=== PATIENT | female | born 1945 | race Caucasian/White ===

== ENCOUNTER 2017-09-28 19:18 | Emergency (ER) | payer MEDICARE ==
[~2017-09-28] VITALS: Ht 160 cm; Wt 87.1 kg
[2017-09-28] MEDS ORDERED: HYDCHL50 PO (21:06)
[2017-09-28] MEDS ORDERED: POTCHL20ER PO (21:07)
[2017-09-28] MEDS ORDERED: Cymbalta20 MG (21:07)
[2017-09-28 22:10] LABS: Chloride (POC) 103 mmol/L (98-108); Creatinine (POC) 0.7 mg/dL (0.6-1.0); Glucose (ISTAT POC) 114 mg/dL (70-99); Hemoglobin (POC) 12.6 g/dL (12.0-16.0); Potassium (POC) 3.5 mmol/L (3.5-5.5); Sodium (POC) 141 mmol/L (135-148); Total CO2 (POC) 29 mmol/L (21-32)
[2017-10-29] MEDS ORDERED: TIZANIDINE HCL2 MG (11:42)
[2017-10-29] MEDS ORDERED: MONT10T (11:42)
[2017-10-29] MEDS ORDERED: LORA.5 (11:42)
[2017-10-29] MEDS ORDERED: BENADRYL25 MG (11:43)
== END 2017-09-29 00:58 | disposition home or self-care (01) ==
LOC: ER 19:18
PROVIDERS: Emergency Medicine
DX: R51 Headache (principal); R42 Dizziness and giddiness; Z91.048 Other nonmedicinal substance allergy status; Z79.899 Other long term (current) drug therapy; Z87.891 Personal history of nicotine dependence
CPT/HCPCS: 70450; 70496; 80047; 85014; 93005; 93010; 99284; Q9967

== ENCOUNTER 2017-11-05 07:36 | Day surgery (SDC) | payer MEDICARE ==
[~2017-11-05] VITALS: Ht 157.5 cm; Wt 86.0 kg
[~2017-11-05 07:36] MED LIST: BENADRYL25 MG; Cymbalta20 MG; HYDCHL50 PO; LORA.5; MONT10T PO; POTCHL20ER PO; TIZANIDINE HCL2 MG
[2018-08-05] MEDS ORDERED: HYDCHL25 PO (12:37)
[2018-08-05] MEDS ORDERED: Omeprazole20 M1 PO (12:38)
[2018-08-05] MEDS ORDERED: Klor-Con M1515 MEQ PO (12:38)
== END 2017-11-05 09:50 | disposition home or self-care (01) ==
LOC: ORSCSDS 07:36
PROVIDERS: Internal Medicine Gastroenterology
PROC: 0DJD8ZZ Inspection of Lower Intestinal Tract, Via Natural or Artificial Opening Endoscopic (ICD-10-PCS; principal; 2017-11-05 09:00)
DX: Z12.11 Encounter for screening for malignant neoplasm of colon (principal); K57.30 Diverticulosis of large intestine without perforation or abscess without bleeding; Z86.010 Personal history of colon polyps; Z80.0 Family history of malignant neoplasm of digestive organs; Z87.891 Personal history of nicotine dependence; Z79.899 Other long term (current) drug therapy
CPT/HCPCS: J0330; J1980; J2405

== ENCOUNTER 2018-08-10 09:12 | Day surgery (SDC) | payer MEDICARE ==
[~2018-08-10] VITALS: Ht 157.5 cm; Wt 89.3 kg
[~2018-08-10 09:12] MED LIST changes: +HYDCHL25 PO; +Klor-Con M1515 MEQ PO; +Omeprazole20 M1 PO
== END 2018-08-10 11:26 | disposition home or self-care (01) ==
LOC: ORSCSDS 09:12
PROVIDERS: Internal Medicine Gastroenterology
PROC: 0D758ZZ Dilation of Esophagus, Via Natural or Artificial Opening Endoscopic (ICD-10-PCS; principal; 2018-08-10 10:30)
PROC: 0DB58ZX Excision of Esophagus, Via Natural or Artificial Opening Endoscopic, Diagnostic (ICD-10-PCS; principal; 2018-08-10 10:30)
DX: K22.2 Esophageal obstruction (principal); K44.9 Diaphragmatic hernia without obstruction or gangrene; R13.10 Dysphagia, unspecified; K21.9 Gastro-esophageal reflux disease without esophagitis; F41.9 Anxiety disorder, unspecified; E66.9 Obesity, unspecified; Z68.34 Body mass index [BMI] 34.0-34.9, adult; Z87.891 Personal history of nicotine dependence; Z79.899 Other long term (current) drug therapy
CPT/HCPCS: 88305; J0330; J1980; J2405; J7120

== ENCOUNTER 2022-03-30 14:42 | Observation (INO) | payer MEDICARE | END 2022-04-01 12:00 | disposition home or self-care (01) | LOC: ER 14:42 → SURS 14:43 | PROVIDERS: ADMIT Internal Medicine | PROC: 0FT44ZZ Resection of Gallbladder, Percutaneous Endoscopic Approach (ICD-10-PCS; principal; 2022-03-31) | PROC: BF03YZZ Plain Radiography of Gallbladder and Bile Ducts using Other Contrast (ICD-10-PCS; principal; 2022-03-31) | DX: K80.12 Calculus of gallbladder with acute and chronic cholecystitis without obstruction (principal); R73.9 Hyperglycemia, unspecified; I10 Essential (primary) hypertension; Z91.048 Other nonmedicinal substance allergy status; Z87.891 Personal history of nicotine dependence; Z20.822 Contact with and (suspected) exposure to COVID-19 ==

== ENCOUNTER → 2023-07-27 | Outpatient (CLI) | payer MEDICARE ==
[~2023-07-27] MED LIST changes: +Acetaminophen650 M1 PO; +Norco 5-325 Ta1 EACH PO; +ONDA4ODT SL
[2023-07-27 15:21] LABS: Source, Urine Clean Catch
[2023-07-27 17:24] LABS: Bilirubin, Urine Neg (Neg); Blood, Urine Neg (Neg); Glucose Qualitative, Urine Neg (Neg); Ketones, Urine Neg (Neg); Leukocyte Esterase, Urine 2+ (Neg); Nitrite, Urine Neg (Neg); Protein, Urine Neg (Neg); Specific Gravity, Urine 1.005 (1.003-1.022); Urobilinogen, Urine NORM (Normal)
[2023-07-27 17:35] LABS: Appearance, Urine Clear (Clear); Color, Urine Pale Yellow (P-Yellow)
[2023-07-27 17:36] LABS: Bacteria Rare /hpf; Red Blood Cells, Urine 0-2 /hpf (0-2); Squamous Epithelial Cells Few /hpf (Few)
== END ==
LOC: LAB SHORT 10:00 → LAB 10:00
PROVIDERS: Nurse Practitioner Family
DX: N39.0 Urinary tract infection, site not specified (principal)
CPT/HCPCS: 81001; 87086